=== PATIENT | male | born 1930 | race Caucasian/White ===

== ENCOUNTER 2016-12-20 09:08 | Emergency (ER) | payer MEDICARE ==
[2016-12-20 09:18] VITALS: BP 114/60
[2016-12-20] MEDS ORDERED: Diphtheria,Pertussis(Acell),Tetanus Vaccine 0.5 ML SDV IM ONE (09:25)
[2016-12-20] MEDS ORDERED: Lidocaine 1% 10 ML MDV INJECT ONE (09:25)
--- NOTE | 2016-12-20 09:26 | EDM.PDOC ---
ED HPI GENERAL MEDICAL PROBLEM - General Chief Complaint: Head Injury Stated Complaint: [facility] Time Seen by Provider: 12/20/16 09:25 Source of Information: Reports: [facility] Records History Limitations: Reports: Physical Impairment ( extremely hard of hearing. ) - History of Present Illness INITIAL COMMENTS - FREE TEXT/NARRATIVE: 86-year-old male is transported to the ED from [facility] with comfort in [place]. Patient had a fall this morning and suffered a 2 inch laceration to his left temporal parietal scalp. He was apparently no loss of consciousness. It 's unclear if the fall was witnessed or not. It's unclear when his last tetanus toxoid was. Patient has diffuse metastatic cancer and is considered DO NOT RESUSCITATE DO NOT INTUBATE. Family requests laceration repair only no imaging. Patient is extremely hard of hearing and therefore history is difficult to obtain from the patient himself. Patient is an insulin-dependent diabetic and has not received any of his medications yet today. Onset: Today Onset Date: 12/20/16 Onset Time: 08:00 Duration: Minutes: Location: Reports: Head (Left lateral hand.) Quality: Reports: Ache Severity: Moderate Improves with: Reports: None Worsens with: Reports: None Context: Reports: Trauma (Apparently tripped and fell. 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: Other (see below) (None.) - Related Data Allergies Allergy/AdvReac Type Severity Reaction Status Date / Time No Known Allergies Allergy Verified 07/26/15 12:41 Home Meds: Home Meds Aspirin [Halfprin] 81 mg PO DAILY 07/26/15 [History] Benazepril HCl [Lotensin] 80 mg PO DAILY 07/26/15 [History] Citalopram [Celexa] 20 mg PO DAILY 07/26/15 [History] Dextran 70/Hypromellose [Artificial Tears] 2 drop EYEBOTH QID 07/26/15 [History] Hydrochlorothiazide 25 mg PO DAILY 07/26/15 [History] Insulin Glarg,Human.Rec.Analog [LantUS Solostar] 22 units SUBCUT QAM 07/26/15 [ History] Insulin Lispro [HumaLOG] 5 unit SUBCUT DAILY 07/26/15 [History] Insulin Lispro [HumaLOG] 10 unit SUBCUT DAILY 07/26/15 [History] Magnesium Hydroxide [Milk of Magnesia] 30 ml PO ASDIRECTED PRN 07/26/15 [History ] Magnesium Oxide 400 mg PO BID 07/26/15 [History] Mineral Oil/Petrolatum,White [Refresh P.M.] 1 drop EYEBOTH BEDTIME 07/26/15 [ History] Multivitamin [Multivitamins] 1 each PO DAILY 07/26/15 [History] Potassium Chloride 10 meq PO TID 07/26/15 [History] Sennosides/Docusate Sodium [Senna S Tablet] 1 each PO BID 07/26/15 [History] Simvastatin [Zocor] 20 mg PO DAILY 07/26/15 [History] Travoprost [Travatan Z] 1 drop EYEBOTH BEDTIME 07/26/15 [History] amLODIPine [Norvasc] 2.5 mg PO DAILY 07/26/15 [History] amLODIPine [Norvasc] 2.5 mg PO DAILY 07/26/15 [History] Past Medical History HEENT History: Reports: Glaucoma, Hard of Hearing, Other (See Below) Other HEENT History: conductive hearing loss Cardiovascular History: Reports: Afib, CAD, High Cholesterol, [place], Pacemaker Respiratory History: Reports: COPD Musculoskeletal History: Reports: Other (See Below) Other Musculoskeletal History: bursitis of right shoulder Neurological History: Reports: Alzheimers Disease Psychiatric History: Reports: Alzheimers Disease Endocrine/Metabolic History: Reports: Diabetes, Type II, Other (See Below) Other Endocrine/Metabolic History: hypokalemia Hematologic History: Reports: Other (See Below) Other Hematologic History: hypokalemia Oncologic (Cancer) History: Reports: Other (See Below) Other Oncologic History: Extensive metastatic cancer of unnkown origin. - Past Surgical History Cardiovascular Surgical History: Reports: Other (See Below) Social & Family History - Tobacco Use Smoking Status *Q: Unknown Ever Smoked Second Hand Smoke Exposure: No - Caffeine Use Caffeine Use: Reports: None - Recreational Drug Use Recreational Drug Use: No - Living Situation & Occupation Living situation: Reports: Extended Care Facility ([place] [facility] with comfort.) Occupation: Retired ED ROS GENERAL - Review of Systems Review Of Systems: See Below Constitutional: Reports: Malaise, Weakness, Fatigue, Decreased Appetite, Weight Loss HEENT: Reports: Hearing Loss, Other (Extremely hard of hearing. 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 He has not answered any questions.) General Appearance: Alert (Makes good eye contact.), Mild Distress Head: Scalp Lacerations (He has a two-step inch or 5 cm laceration left lateral scalp which involves temporal parietal area. It is deep down to the galea.) Nexus Criteria: No: Posterior, Midline Cervical Tenderness, Evidence of Intoxication, Altered Level of Consciousness, Focal Neurological Deficit, Painful Distraction Injuries Eyes: Bilateral Eye: Normal Inspection Throat/Mouth: Normal Inspection, Normal Lips, Normal Oropharynx, Other Neck: Non-Tender, Full Range of Motion (Edentulous.), Normal Alignment, Normal Inspection Respiratory: No Respiratory Distress, Lungs Clear, Normal Breath Sounds, No Accessory Muscle Use Extremities: Other (Review of all of his extremities shows dependent edema below the knees bilaterally. There is no evidence of injuries to the knees ankles or hips. 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 nml As Tested, Oriented x 3 - Nathalia Coma Score Best Eye Response ([place]): (4) Open Spontaneously Best Verbal Response ([place]): (5) Oriented Best Motor Response ([place]): (6) Obeys Commands Nathalia Total: 15 ED LACERATION/WOUND & BEBA PROC - Laceration/Wound Repair Left Upper Mid-Posterior Lateral Head Lac/wound length in cm: 5 Appearance: Subcutaneous, Clean Distal NVT: Neuro & Vascular Intact Anesthetic Type: Local Local Anesthesia - Lidocaine (Xylocaine): 1% Plain Local Anesthetic Volume: Other (10 mL) Skin Prep: Saline Exploration/Debridement/Repair: Wound Explored Closed with: Sutures Suture Size: 4-0 # of Sutures: 11 Suture Type: Nylon, Interrupted, Simple Course - Vital Signs Last Recorded V/S: Last Vital Signs Temp 36.7 C 12/20/16 09:11 Pulse 79 12/20/16 09:11 Resp 15 12/20/16 09:11 BP 114/60 12/20/16 09:11 Pulse Ox 100 12/20/16 09:11 - Orders/Labs/Meds Orders: Active Orders 24 hr Category Date Time Status Vaccines to be Administered [RC] PER UNIT ROUTINE Care 12/20/16 09:25 Active Meds: Medications Discontinued Medications Generic Name Dose Route Start Last Admin Trade Name Juan Jose PRN Reason Stop Dose Admin Diphtheria/Tetanus/Acell Pertussis 0.5 ml 12/20/16 09:25 Adacel IM 12/20/16 09:26 .ONCE ONE Lidocaine HCl 10 ml 12/20/16 09:25 12/20/16 09:29 Xylocaine 1% INJECT 12/20/16 09:26 10 ml ONETIME ONE Administration - Radiology Interpretation Free Text/Narrative:: 86-year-old male apparently tripped and fell in the half-way at [facility] with comfort this morning. He has suffered a 5 cm laceration to the left lateral scalp involving the temporoparietal area. Plan is to anesthetize the wound with 1% lidocaine and suture the wound. Them is requested to imaging studies as he is DO NOT RESUSCITATE DO NOT INTUBATE due to his diffuse metastatic cancer. - Re-Assessments/Exams Free Text/Narrative Re-Assessment/Exam: 12/20/16 09:57 wound cleansed and then sutured under local anesthetic 11. Patient will be sent back to [facility] with comfort where he resides. Sutures will need to be removed in 10 days' time. Wound is to be daily cleanse and soap and water and then topical antibiotic such as bacitracin or Polysporin applied. Departure - Departure Time of Disposition: 09:58 Disposition: Home, Self-Care 01 Condition: Poor Clinical Impression: Scalp laceration Qualifiers: Encounter type: initial encounter Qualified Code(s): S01.01XA - Laceration without foreign body of scalp, initial encounter - Discharge Information Forms: ED Department Discharge Additional Instructions: Evaluation in the emergency room today in regards to a fall at the half-way with resultant closed head injury. 5 cm laceration along the temporal parietal scalp on the left side identified. Wound was cleansed and then sutured under local anesthetic. Treatment is to daily cleanse the wound with soap and water. Then apply topical bacitracin once daily. Sutures will need to be removed in 10 days' time. - My Orders Last 24 Hours: My Active Orders 12/20/16 09:25 Vaccines to be Administered [RC] PER UNIT ROUTINE - Assessment/Plan Last 24 Hours: My Active Orders 12/20/16 09:25 Vaccines to be Administered [RC] PER UNIT ROUTINE
== END 2016-12-20 11:38 | disposition home or self-care (01) ==
LOC: JD.ED 09:08
DX: S01.01XA Laceration without foreign body of scalp, initial encounter (principal); E78.00 Pure hypercholesterolemia, unspecified; I25.2 Old myocardial infarction; I48.91 Unspecified atrial fibrillation; E11.9 Type 2 diabetes mellitus without complications; J44.9 Chronic obstructive pulmonary disease, unspecified; Z79.82 Long term (current) use of aspirin; Z79.899 Other long term (current) drug therapy; Z79.4 Long term (current) use of insulin; Z23 Encounter for immunization
CPT/HCPCS: 12002; 90471; 90715; 99283-25; 99285-25